=== PATIENT | female | born 1960 | race Caucasian/White ===

== ENCOUNTER 2024-05-09 09:04 | Day surgery (SDC) | payer OTHER, SELFPAY ==
[2024-05-09 10:59] VITALS: BP 121/77; PULSE 68; RESP 16; TEMP 36.4; O2SAT 99
[2024-05-09] MEDS: LACTATED RINGERS 1,000 ML 42 ML IV (11:04)
--- NOTE | 2024-05-09 12:13 | PM.HP.IH.1 ---
History of Present Illness History of Present Illness Date Patient Seen: 05/09/24 Time Patient Seen: 12:13 Chief complaint: Screening Colonoscopy Narrative: 63 year old WF for 10 year interval screening. No family history. No changes in bowel habits. [facility]LY [facility] Medical History Hyperplastic colon polyp Hemorrhoid H/O cholelithiasis Surgical History History of bilateral tubal ligation History of laparoscopic cholecystectomy History of colonoscopy H/O tubal ligation Family History Mother Cancer Grandmother Cancer Social History pets and animals: Yes Smoking Status: Former smoker alcohol intake: never additional social history: PMHX: none PSHX: BTL @ 42 yo choley s/p all: none meds: asa tob: none etoh: none lives with alone -- with family down stairs safe yes colonoscopy at 52 yo - little polyps removed + FHX breast cancer: mom and GM + dense breasts GF IN no other cancer or stroke last pap smear: May had pap -- nl. 01/2024 Meds Home Medications and Allergies Home Medications Medication Instructions Recorded Confirmed Type progesterone micronized 100 mg See Rx Instructions PO QAM take 02/05/24 05/09/24 Rx capsule every day while on estrogen #180 caps estradiol 0.0375 mg/24 hr 1 patch transdermal 2XW hormone 03/05/24 05/09/24 Rx semiweekly transdermal patch replacement #8 ea sodium,potassium,mag sulfates 17.5 See Rx Instructions PO .COMPLEX 04/05/24 Rx gram-3.13 gram-1.6 gram oral soln #354 mL (Suprep Bowel Prep Kit) Allergies Allergy/AdvReac Type Severity Reaction Status Date / Time No Known Drug Allergies Allergy Verified 05/09/24 10:53 Review of Systems Review of Systems ROS: Yes All systems reviewed with the patient and are negative except as otherwise documented Exam Vital Signs (past 8 hours): - 05/09/24 10:59 Temperature 97.5 F L Pulse Rate 68 Respiratory Rate 16 Blood Pressure 121/77 Pulse Oximetry 99 Oxygen Delivery Method Room Air Oxygen Delivery Method Room Air Narrative Exam Narrative: Gen: NAD, sitting comfortably in bed, appears well HEENT: Sclera are anicteric, head is normocephalic and atraumatic, trachea is midline. CV: RRR, no JVD Resp: clear to auscultation bilaterally, equal chest wall movement bilaterally Abd: soft, nontender, normoactive bowel sounds Ext: no edema, full range of motion Neuro: Cranial nerves II-XII grossly intact, no focal deficits Skin: No erythema or ecchymosis Assessment & Plan Assessment and plan (1) Colon cancer screening: Status: Acute Assessment & Plan narrative: Patient presents for colonoscopy Risks, benefits, alternatives to colonoscopy explained, including but not limited to bowel perforation or other serious complication requiring surgery at less than 1 in 5000 colonoscopies, abdominal pain, cramping or bleeding and less than 1% of colonoscopies, and the chances that we find a diagnosis that would require further intervention of about 2%. Patient agrees to proceed. Time-Based Coding :: [TOTAL MINUTES] spent with patient and on the chart (including review of chart, obtaining history, exam, reviewing outside data, placing orders, documenting exam and treatment plan, and counseling patient) on [DATE]. [employer] Super[employer] Document charge(s): No
--- NOTE | 2024-05-09 12:36 | PM.OP.COLON ---
Operative Date/Time/Diagnoses Date of procedure: 05/09/24 Time of procedure: 12:36 Pre-op diagnosis: Colon screening Post-op diagnosis: same (Diverticulosis, internal hemorrhoids) Procedure & Clinicians Study performed: Colonoscopy Same procedure as scheduled: Yes Indications: Screening Surgeon: Shaq Wilson Procedure Notes SCOAP/Timeout: Performed Procedure in detail: Time-out was performed. Mac was induced. Patient was placed in left lateral decubitus position. The perineum was inspected without any gross abnormality. Lubricated pediatric colonoscope was inserted and advanced to the cecum. The terminal ileum was intubated. The colonoscope was withdrawn slowly inspecting the circumference of the colon. Very small polyps may have been missed, prep quality was adequate. Patient had pancolonic diverticulosis. Retroflexed view of the rectum showed small, non prolapsed nonbleeding internal hemorrhoids. The scope was withdrawn the patient was taken to PACU in good condition. Scope withdrawal time: 6 Findings: divertiulosis and internal hemorrhoids Specimen(s): none sent Complications: none Impression: Diverticulosis internal hemorrhoids otherwise normal colon Post-procedure Recommendations: Colonoscopy in 10 years Follow up: as needed Disposition: PACU
[2024-05-09 12:37] VITALS: BP 98/61; PULSE 80; RESP 16; TEMP 36.1; O2SAT 97
[2024-05-09 12:41] VITALS: BP 106/70; PULSE 81; RESP 14; O2SAT 97
[2024-05-09 12:46] VITALS: BP 111/69; PULSE 74; RESP 15; O2SAT 97
[2024-05-09 12:50] VITALS: BP 110/70; PULSE 82; RESP 16; TEMP 36.1; O2SAT 97
== END 2024-05-09 13:05 | disposition home or self-care (01) ==
PROVIDERS: PCP Family Medicine; Referring Provider Surgery; Visit Provider Surgery
PROC: 0DJD8ZZ Inspection of Lower Intestinal Tract, Via Natural or Artificial Opening Endoscopic (ICD-10-PCS; CPT 45378; principal; 2024-05-09 13:00)
DX: Z12.11 Encounter for screening for malignant neoplasm of colon (principal); K57.30 Diverticulosis of large intestine without perforation or abscess without bleeding; K64.8 Other hemorrhoids
CPT/HCPCS: 45378; J2405; J2704